=== PATIENT | female | born 1990 | race Caucasian/White ===

== ENCOUNTER 2017-07-21 12:03 | Emergency (ER) | payer OTHER ==
[~2017-07-21 12:03] MED LIST: FLUO20TA20 PO; GEOD80CA PO; VIST50CA PO
[2017-07-21 12:14] VITALS: BP 131/92; PULSE 103; RESP 20; TEMP 98; O2SAT 99
--- NOTE | 2017-07-21 13:44 | PD ---
HPI Chief Complaint: Injury Time Seen by Provider: 13:27 Travel History International Travel<30 days: No Contact w/Intl Traveler<30days: No Traveled to known affect area: No History of Present Illness HPI 26-year-old female presents to the emergency room for evaluation of right great toenail avulsion. Patient states she accidentally kicked the car door yesterday and her nail fell off. She soaked in Epsom salt for 20 minutes. Patient reports continued pain today. Pain is minimal and only occurs when she touches the area. No drainage. Unknown last tetanus. PFSH Past Medical History ADD: No Anemia: No Depression: Yes High Cholesterol: No Congestive Heart Failure: No Diabetes: Yes Hypertension: Yes Thyroid Disease: Yes Social History Alcohol Use: No Tobacco Use: No Substance Use: No Allergies-Medications (Allergen,Severity, Reaction): Coded Allergies: grass pollen (Unverified Allergy, Mild, RESPIRATORY, 11/10/16) Reported Meds & Prescriptions Reported Meds & Active Scripts Active Reported Geodon (Ziprasidone) 80 Mg Cap 80 Mg PO BID TAKE WITH MEALS (BREAKFAST & DINNER) Fluoxetine Hcl (Fluoxetine HCl) 20 Mg Tab 20 Mg PO DAILY Vistaril (Hydroxyzine Pamoate) 50 Mg Cap 50 Mg PO TID PRN Review of Systems Except as stated in HPI: all other systems reviewed are Neg Physical Exam Narrative GENERAL: Well-nourished, obese female no acute distress. Afebrile. Ambulatory. SKIN: Focused skin assessment warm/dry. The right great toenail is avulsed. Matrix intact. Nailbed intact. HEAD: Normocephalic. EYES: No scleral icterus. No injection or drainage. NECK: Supple, trachea midline. No JVD or lymphadenopathy. CARDIOVASCULAR: Regular rate and rhythm without murmurs, gallops, or rubs. RESPIRATORY: Breath sounds equal bilaterally. No accessory muscle use. MUSCULOSKELETAL: No cyanosis, or edema. Less than 2 second capillary refill distally. Full range of motion of the toe. Data Data Last Documented VS Vital Signs Date Time Temp Pulse Resp B/P (MAP) Pulse Ox O2 Delivery O2 Flow Rate FiO2 07/21/17 12:14 98.0 103 20 131/92 (105) 99 MDM Medical Decision Making Medical Screen Exam Complete: Yes Emergency Medical Condition: Yes Medical Record Reviewed: Yes Differential Diagnosis Toenail avulsion, fracture, strain, sprain, contusion Narrative Course 26-year-old female presents to the emergency room for evaluation of right great toenail avulsion that occurred yesterday. There is no nailbed laceration. Nailbed was thoroughly irrigated with saline. Patient's toenail was glued in place to protect the nail bed. Tetanus updated. Patient told to follow-up with primary care physician or return for worsening symptoms. She understands and agrees to plan. Diagnosis Primary Impression: Toenail avulsion Qualified Codes: S91.209A - Unspecified open wound of unspecified toe(s) with damage to nail, initial encounter Referrals: Primary Care Physician Additional Instructions: Keep area clean and dry. Follow-up with a donor services team leader if needed. Return for worsening symptoms per Disposition: 01 DISCHARGE HOME Condition: Stable Dee Castellanos Jul 21, 2017 13:44
== END 2017-07-21 13:58 | disposition home or self-care (01) ==
LOC: NEPK 12:03
DX: S91.201A Unspecified open wound of right great toe with damage to nail, initial encounter (principal); E11.9 Type 2 diabetes mellitus without complications; I10 Essential (primary) hypertension; W22.09XA Striking against other stationary object, initial encounter; Y92.009 Unspecified place in unspecified non-institutional (private) residence as the place of occurrence of the external cause
CPT/HCPCS: 12001